=== PATIENT | male | born 2000 | race African-American/Black ===

== ENCOUNTER 2021-08-05 07:49 | Day surgery (SDC) | payer OTHER ==
[~2021-08-05] VITALS: Ht 185.4 cm; Wt 76.2 kg
[~2021-08-05 07:49] MED LIST: LIDOCAINE 1% MDV 20ML VIAL SQ PRN; LR 1,000 ML IV ONE; ceFAZolin SOD 2 GM in IV 1 EA IV ONE
[2021-08-05] MEDS ORDERED: propofoL 200 MG/20 ML VIAL As Ordered ONE (08:40)
[2021-08-05] MEDS ORDERED: LIDOCAINE 2% 100MG/5ML SDV (FOR ANES.) As Ordered ONE (08:40)
[2021-08-05] MEDS ORDERED: KETAMINE HCL 200 MG/20 ML VIAL As Ordered ONE (08:40)
[2021-08-05] MEDS ORDERED: MIDAZOLAM INJ 2MG/2ML VIAL (J2250 PER 1MG) As Ordered ONE (08:40)
[2021-08-05] MEDS ORDERED: ONDANSETRON 4MG/2ML VIAL As Ordered ONE (08:40)
[2021-08-05] MEDS ORDERED: fentaNYL 100 MCG/2 ML INJECTION As Ordered ONE (08:40)
[2021-08-05] MEDS ORDERED: dexameTHASONE 4 MG/ML 1ML VIAL (J1100 PER 1MG) As Ordered ONE (08:40)
[2021-08-05] MEDS ORDERED: BUPIVACAINE HCL 0.25% 30ML VIAL As Ordered ONE (09:13)
[2021-08-05] MEDS ORDERED: ACETAMINOPHEN 1000MG 100ML IV BTL (OFIRMEV) (J0131 PER 10MG) As Ordered ONE (09:43)
[2021-08-05] MEDS ORDERED: KETOROLAC 60MG 2ML VIAL As Ordered ONE (09:44)
[2021-08-05 10:50] VITALS: BP 127/80
== END 2021-08-05 11:00 | disposition home or self-care (01) ==
LOC: M SDC 07:49
PROVIDERS: ATTEND Orthopaedic Surgery Hand Surgery
DX: M20.012 Mallet finger of left finger(s) (principal); F17.290 Nicotine dependence, other tobacco product, uncomplicated
CPT/HCPCS: 26756; 76000; J0131; J0690; J1100; J1885; J2250; J2405; J3010

== ENCOUNTER → 2021-08-07 | Outpatient (CLI) | payer OTHER | LOC: M SOG 11:09 | PROVIDERS: ATTEND Physician Assistant | DX: M20.012 Mallet finger of left finger(s) (principal); Z48.89 Encounter for other specified surgical aftercare; Z98.890 Other specified postprocedural states ==

== ENCOUNTER → 2021-10-05 | Outpatient (CLI) | payer OTHER | LOC: M SOG 08:10 | PROVIDERS: ATTEND Physician Assistant | DX: M20.012 Mallet finger of left finger(s) (principal) ==

== ENCOUNTER → 2021-10-05 | Outpatient (CLI) | payer OTHER | LOC: M SOG 09:06 | PROVIDERS: ATTEND Physician Assistant | DX: M20.012 Mallet finger of left finger(s) (principal) ==